=== PATIENT | female | born 1955 | race Caucasian/White ===

== ENCOUNTER 2025-06-07 14:28 | Inpatient (IN) | payer OTHER, SELFPAY ==
[2025-06-07] VITALS (17 sets, daily range): BP systolic 126–157; BP diastolic 60–89; PULSE 70–94; RESP 16–24; TEMP 36.5–40.4; O2SAT 92–99; BMI 32.5
--- NOTE | 2025-06-07 15:00 | PC.NURSE ---
educational sign language interpreter used, yi
--- NOTE | 2025-06-07 15:45 | DI.US.S_ITS ---
PROCEDURE: US PERIPH VENOUS LOW EXTREM RT INDICATIONS: Leg swelling, ecchymosis TECHNIQUE: Real-time imaging, as well as color and pulse Doppler interrogation, were performed of the lower extremity deep veins from the inguinal ligament to the popliteal fossa, with documentation of the visualized calf veins. COMPARISON: None. FINDINGS: The common femoral, femoral, popliteal, and the visualized calf veins are normally compressible, and free of intraluminal thrombus. Color and pulse Doppler demonstrate normal phasic intraluminal flow. There is normal augmentation response to distal compression maneuver. Peroneal vein is not seen secondary to edema. IMPRESSION: No findings of lower extremity deep venous thrombosis. Dictated by: Luis Rico M.D. on 06/07/2025 at 16:37 Approved by: Luis Rico M.D. on 06/07/2025 at 16:38
[2025-06-07 16:55] LABS: Add Manual Diff / Slide Review NO; Hematocrit 41.4 % (36-46); Hemoglobin 13.6 g/dL (12.0-16.0); Lymphocytes Absolute Auto 1200 /uL (1100-4500); Mean Corpuscular HGB Conc 32.8 % (30-36); Mean Corpuscular Hemoglobin 29.9 PG (26-34); Mean Corpuscular Volume 91.2 fL (80-100); Platelet Count 163 X10^3/uL (150-400)
[2025-06-07 17:05] LABS: INR 1.2 (0.9-1.3); Prothrombin Time 13.9 SECONDS (9.4-12.5)
[2025-06-07 17:07] LABS: PTT Partial Thromboplastin Tim 29 SECONDS (25.1-36.5)
--- NOTE | 2025-06-07 17:13 | DI.RAD.S_ITS ---
PROCEDURE: XR CHEST 2V INDICATIONS: sepsis TECHNIQUE: 2 views of the chest were acquired. COMPARISON: None. FINDINGS: Surgical changes and devices: None. Lungs and pleura: Lungs are clear. No pleural effusions or pneumothorax. Mediastinum: Mediastinal contours are normal. Heart size is normal. Bones and chest wall: No suspicious bony abnormalities. Soft tissues appear unremarkable. IMPRESSION: No acute cardiopulmonary abnormality is seen. Dictated by: Joe Abdi M.D. on 06/07/2025 at 19:01 Approved by: Joe Abdi M.D. on 06/07/2025 at 19:01
--- NOTE | 2025-06-07 17:13 | EKG_ITS ---
[address] [address] Test Date: 2025-06-07 Pat Name: Malathi Lynch Department: Room: Gender: Female Rough Rounder: BRITTANI : 1955 Requested By: Order Number: [id number] Reading MD: Ish Raymond MD Measurements Intervals Vandiver Rate: 84 P: 72 DC: 162 QRS: 62 QRSD: 98 T: 56 QT: 384 QTc: 453 Interpretive Statements Normal sinus rhythm Electronically Signed On 06-08-2025 7:39:06 PDT by Ish Raymond MD
[2025-06-07 17:17] LABS: Alanine Aminotransferase 28 IU/L (<35); Albumin 4.7 g/dL (3.5-5.0); Albumin Globulin Ratio 1.3 (1.0-2.8); Alkaline Phosphatase 77 U/L (38-126); Blood Urea Nitrogen 15 mg/dL (7-17); Calcium 10.4 mg/dL (8.4-10.2); Carbon Dioxide 29 mmol/L (22-32); Chloride 98 mmol/L (98-107); Estimated Glomerular Filt Rate > 60 mL/min (>60); Globulin 3.5 g/dL (1.7-4.1); Glucose 129 mg/dL (70-99); HEMOLYSIS < 15 (0-50); Potassium 3.9 mmol/L (3.4-5.1); Sodium 134 mmol/L (137-145); Total Protein 8.2 g/dL (6.3-8.2)
[2025-06-07 17:27] LABS: Creatine Kinase 120 U/L (30-135); Lactate (Lactic Acid) 1.7 mmol/L (0.7-2.1)
[2025-06-07 17:40] LABS: Troponin I < 0.012 ng/mL (0.01-0.034)
[2025-06-07 17:45] LABS: Procalcitonin 1.11 ng/mL (<0.5)
[2025-06-07] MEDS: IBUPROFEN 400 MG TABLET 800 MG PO (17:54)
--- NOTE | 2025-06-07 17:55 | ED_ITS ---
HPI - Extremity Problem <Maria Isabel Guevara PA-C - Last Filed: 06/07/25 19:04> General Chief complaint: Extremity Problem,Nontraumatic Stated complaint: Needs lab work for Antibiotics sent from Time Seen by Provider: 06/07/25 14:35 Source: patient Mode of arrival: Ambulatory History of Present Illness HPI Narrative: 69-year-old Nigerian speaking female with past medical history hypertension presents to the ED with 2 days of right lower leg erythema, swelling. Use the electrophysiologist for communication with patient and patient's . Patient states that she had an infection in the right lower delcid for which she took p.o. Augmentin which cleared up the infection. Yesterday, patient noted a small red patch in that same spot on the delcid. This morning, patient noted that she saw a large area of ecchymosis from the delcid on down to the ankle. Patient also reports more swelling. Denies numbness, tingling, weakness. Patient endorses subjective fevers for the last 2 days. Denies headache, rhinorrhea, cough, sore throat, chest pain, shortness of breath, abdominal pain. Patient endorses nausea, denies vomiting. Review of Systems <Maria Isabel Guevara PA-C - Last Filed: 06/07/25 19:04> Constitutional Constitutional: Denies chills, Denies fatigue, Reports fever(s), Denies frequent falls, Denies lethargy and Denies weakness Eyes Eyes: Denies change in vision, Denies eye discharge, Denies irritation and Denies loss of vision ENT Ears, Nose, Mouth, and Throat: Denies change in voice, Denies dizziness, Denies neck pain, Denies sore throat and Denies throat swelling Cardiovascular Cardiovascular: Denies chest pain, Denies irregular heart rhythm, Denies lightheadedness, Denies palpitations, Denies dyspnea, Denies dyspnea on exertion and Denies orthopnea Respiratory Respiratory: Denies cough, Denies dyspnea, Denies dyspnea on exertion and Denies wheezing Gastrointestinal Gastrointestinal: Denies abdominal pain, Denies change in bowel habits, Denies diarrhea, Reports nausea and Denies vomiting Musculoskeletal Musculoskeletal: Denies neck pain and Denies numbness Integumentary/Breasts Skin/Breast: Denies pruritus, Denies erythema, Denies rash, Reports unusual bruising and Denies wounds Comments: Redness and swelling in the right lower leg Neurologic Neurologic: Denies behavioral changes, Denies confusion, Denies dizziness, Denies frequent falls, Denies loss of vision, Denies numbness and Denies weakness Psychiatric Psychiatric: Denies anxiety, Denies behavioral changes, Denies confusion, Denies depression, Denies homicidal ideation and Denies suicidal ideation Endocrine Endocrine: Denies fatigue, Denies flushing and Denies palpitations Hematologic/Lymphatic Hematologic/Lymphatic: Denies easy bruising Allergic/Immunologic Allergic/Immunologic: Denies urticaria, Denies throat swelling and Denies wheezing Patient History <Maria Isabel Guevara PA-C - Last Filed: 06/07/25 19:04> Social History Smoking Status: Never smoker Smoking Status: Never smoker Exam <Maria Isabel Guevara PA-C - Last Filed: 06/07/25 19:04> Narrative Exam Narrative: Const General:?cooperative, healthy appearing and comfortable HENMT Head:?normal to inspection Ears:?hearing grossly normal bilaterally Nose:?external nose normal Face and sinus:?normal facial exam and sinuses nontender Mouth:?oral mucosae normal Throat:?posterior oropharynx normal Eyes General:?appearance normal, both eyes and all related structures Neck Neck:?normal visual inspection and no lymphadenopathy noted Resp Effort & Inspection:?normal respiratory effort Auscultation:?clear to auscultation bilaterally Cardio Rate:?regular rate Rhythm:?regular rhythm Integumentary/musculoskeletal There is a large area of ecchymosis extending from right lower delcid down into the ankle. Swelling of the right lower leg. Strength and sensation is intact. Patient able to bear weight and walk. Patient is neurovascularly intact. Neuro General:?patient alert, patient awake and patient oriented x3 Initial Vital Signs Initial Vital Signs: Vital Signs Temperature 98.0 F 06/07/25 14:37 Pulse Rate 94 H 06/07/25 14:37 Respiratory Rate 16 06/07/25 14:37 Blood Pressure 126/60 06/07/25 14:37 Pulse Oximetry 97 06/07/25 14:37 Oxygen Delivery Method Room Air 06/07/25 14:37 <Benson Heller DO - Last Filed: 06/07/25 21:19> Initial Vital Signs Initial Vital Signs: Vital Signs Temperature 98.0 F 06/07/25 14:37 Pulse Rate 94 H 06/07/25 14:37 Respiratory Rate 16 06/07/25 14:37 Blood Pressure 126/60 06/07/25 14:37 Pulse Oximetry 97 06/07/25 14:37 Oxygen Delivery Method Room Air 06/07/25 14:37 Course <Maria Isabel Guevara PA-C - Last Filed: 06/07/25 19:04> Orders Ordered: ED Orders 06/07/25 15:45 US periph venous low extrem rt Stat 06/07/25 16:37 CBC Auto Diff [Complete Blood Count AUTO DIFF] Stat CMP [Comprehensive Metabolic Panel] Stat CRP [C-Reactive Protein Quant] Stat ESR [Erythrocyte Sedimentation Rate] Stat Lactate (Lactic Acid) Stat PT [Prothrombin Time INR] Stat PTT [PTT Partial Thromboplastin Jean-Pierre] Stat Procalcitonin Stat Troponin & CK Cardiac Panel Stat 06/07/25 17:13 XR chest 2V Stat EKG-12 Lead Stat 06/07/25 17:43 Urinalysis and Microscopic Stat Urine Culture Stat 06/07/25 18:20 Blood Culture Stat 06/07/25 18:26 Covid-19 + FLU A/B + RSV - PCR Stat 06/07/25 18:43 CT LE RT w con Stat Discontinued Medications Piperacillin Sod/Tazobactam (Sod 4.5 gm/ Sodium Chloride) 100 mls @ 200 mls/hr IV NOW ONE Stop: 06/07/25 17:14 Last Infusion: 06/07/25 19:12 Dose: Infused Documented By: Admin: 06/07/25 18:30 Dose: 200 mls/hr Documented By: CHARLEY Sodium Chloride (Normal Saline 0.9%) 2,670 mls @ 890 mls/hr 30 ml/kg infuse over 3 hr (2670 ml) IV NOW ONE Stop: 06/07/25 20:12 Last Admin: 06/07/25 18:39 Dose: 890 mls/hr Documented By: CHARLEY Vancomycin HCl 1,750 mg/ (Sodium Chloride) 500 mls @ 250 mls/hr IV NOW ONE Stop: 06/07/25 19:10 Last Admin: 06/07/25 20:06 Dose: Not Given Documented By: FER Vancomycin HCl 2,000 mg/ (Sodium Chloride) 500 mls @ 250 mls/hr IV NOW ONE Stop: 06/07/25 19:45 Last Admin: 06/07/25 20:08 Dose: 250 mls/hr Documented By: FER Ibuprofen (Ibuprofen 400 Mg Tablet) 800 mg PO NOW ONE Stop: 06/07/25 17:51 Last Admin: 06/07/25 17:54 Dose: 800 mg Documented By: CHARLEY Vital Signs Vital signs: Vital Signs - 8 hr 06/07/25 14:37 06/07/25 17:21 06/07/25 17:54 Temperature 98.0 F 104.7 F H 104.7 F H Pulse Rate 94 H 92 H Respiratory Rate 16 20 Blood Pressure 126/60 157/66 H Pulse Oximetry 97 99 Oxygen Delivery Method Room Air Room Air 06/07/25 18:47 06/07/25 19:13 Temperature 100.5 F H 100.8 F H Pulse Rate Respiratory Rate Blood Pressure Pulse Oximetry Oxygen Delivery Method <Benson Heller, - Last Filed: 06/07/25 21:19> Orders Ordered: ED Orders 06/07/25 15:45 US periph venous low extrem rt Stat 06/07/25 16:37 CBC Auto Diff [Complete Blood Count AUTO DIFF] Stat CMP [Comprehensive Metabolic Panel] Stat CRP [C-Reactive Protein Quant] Stat ESR [Erythrocyte Sedimentation Rate] Stat Lactate (Lactic Acid) Stat PT [Prothrombin Time INR] Stat PTT [PTT Partial Thromboplastin Jean-Pierre] Stat Procalcitonin Stat Troponin & CK Cardiac Panel Stat 06/07/25 17:13 XR chest 2V Stat EKG-12 Lead Stat 06/07/25 17:43 Urinalysis and Microscopic Stat Urine Culture Stat 06/07/25 18:20 Blood Culture Stat 06/07/25 18:26 Covid-19 + FLU A/B + RSV - PCR Stat 06/07/25 18:43 CT LE RT w con Stat Discontinued Medications Piperacillin Sod/Tazobactam (Sod 4.5 gm/ Sodium Chloride) 100 mls @ 200 mls/hr IV NOW ONE Stop: 06/07/25 17:14 Last Infusion: 06/07/25 19:12 Dose: Infused Documented By: Admin: 06/07/25 18:30 Dose: 200 mls/hr Documented By: CHARLEY Sodium Chloride (Normal Saline 0.9%) 2,670 mls @ 890 mls/hr 30 ml/kg infuse over 3 hr (2670 ml) IV NOW ONE Stop: 06/07/25 20:12 Last Admin: 06/07/25 18:39 Dose: 890 mls/hr Documented By: CHARLEY Vancomycin HCl 1,750 mg/ (Sodium Chloride) 500 mls @ 250 mls/hr IV NOW ONE Stop: 06/07/25 19:10 Last Admin: 06/07/25 20:06 Dose: Not Given Documented By: FER Vancomycin HCl 2,000 mg/ (Sodium Chloride) 500 mls @ 250 mls/hr IV NOW ONE Stop: 06/07/25 19:45 Last Admin: 06/07/25 20:08 Dose: 250 mls/hr Documented By: FER Ibuprofen (Ibuprofen 400 Mg Tablet) 800 mg PO NOW ONE Stop: 06/07/25 17:51 Last Admin: 06/07/25 17:54 Dose: 800 mg Documented By: CHARLEY Vital Signs Vital signs: Vital Signs - 8 hr 06/07/25 14:37 06/07/25 17:21 06/07/25 17:54 Temperature 98.0 F 104.7 F H 104.7 F H Pulse Rate 94 H 92 H Respiratory Rate 16 20 Blood Pressure 126/60 157/66 H Pulse Oximetry 97 99 Oxygen Delivery Method Room Air Room Air 06/07/25 18:47 06/07/25 19:13 Temperature 100.5 F H 100.8 F H Pulse Rate Respiratory Rate Blood Pressure Pulse Oximetry Oxygen Delivery Method MDM - Extremity (Nontraumatic) <Maria Isabel Guevara PA-C - Last Filed: 06/07/25 19:04> Lab Data 06/07/25 16:37 06/07/25 16:37 Labs: Lab Results 06/07/25 06/07/25 06/07/25 Range/Units 16:37 17:43 18:26 WBC 15.1 H (4.5-11.0) X10^3/uL RBC 4.54 (4.0-5.2) X10^6/uL Hgb 13.6 (12.0-16.0) g/dL Hct 41.4 (36-46) % MCV 91.2 (80-100) fL MCH 29.9 (26-34) PG MCHC 32.8 (30-36) % RDW 13.9 (11.6-14.8) % Plt Count 163 (150-400) X10^3/uL Neut % (Auto) 86.0 H (50-75) % Lymph % (Auto) 7.8 L (25-40) % [place] % (Auto) 6.0 (3-14) % Eos % (Auto) 0.0 L (2-4) % Baso % (Auto) 0.2 (0-2) % Neut # (Auto) 54668 H (9328-3742) /uL Lymph # (Auto) 1200 (8406-2217) /uL [place] # (Auto) 900 (0-900) /uL Eos # (Auto) 0 (0-450) /uL Baso # (Auto) 0 (0-100) /uL ESR 19 (0-20) MM/HR PT 13.9 H (9.4-12.5) SECONDS INR 1.2 (0.9-1.3) APTT 29 (25.1-36.5) SECONDS Sodium 134 L (137-145) mmol/L Potassium 3.9 (3.4-5.1) mmol/L Chloride 98 (98-107) mmol/L Carbon Dioxide 29 (22-32) mmol/L BUN 15 (7-17) mg/dL Creatinine 0.74 (0.52-1.04) mg/dL Estimated GFR > 60 (>60) mL/min BUN/Creatinine Ratio 20.3 (6-22) Glucose 129 H (70-99) mg/dL Lactate 1.7 (0.7-2.1) mmol/L Calcium 10.4 H (8.4-10.2) mg/dL Total Bilirubin 0.7 (0.2-1.3) mg/dL AST 32 (14-36) IU/L ALT 28 (<35) IU/L Alkaline Phosphatase 77 (38-126) U/L Total Creatine Kinase 120 (30-135) U/L Troponin I < 0.012 (0.01-0.034) ng/mL C-Reactive Protein 16.4 H (<1.0) mg/dL Total Protein 8.2 (6.3-8.2) g/dL Albumin 4.7 (3.5-5.0) g/dL Globulin 3.5 (1.7-4.1) g/dL Albumin/Globulin Ratio 1.3 (1.0-2.8) Procalcitonin 1.11 H (<0.5) ng/mL Urine Color Yellow Urine Appearance Slightly cloudy Urine pH 8.0 (4.5-8.0) Ur Specific [place] 1.010 (1.000-1.035) Urine Protein 1+ H (Negative) Urine Glucose (UA) Negative (Negative) g/dL Urine Ketones 1+ H (NEGATIVE) Urine Occult Blood Trace-intact (Negative) Urine Nitrate Negative (Negative) Urine Bilirubin Negative (NEGATIVE) Urine Urobilinogen 2.0 H (0.2) E.U./dL Ur Leukocyte Esterase 3+ H (NEGATIVE) Urine RBC 1-5/hpf (0-5/HPF) Urine WBC 30-100/hpf H (0-5/HPF) Ur Squamous Epith Cells 1-5 /hpf (0-5/HPF) Amorphous Sediment 2+ Urine Bacteria Many (>30) H (None) Ur Culture Indicated? Specimen cultured Micro UA Comment Vol Urine Centrifuged 10ml (spun) SARS-CoV-2 (PCR) Negative (Negative) Influenza A (RT-PCR) Flu a negative (NEGATIVE) Influenza B (RT-PCR) Flu b negative (NEGATIVE) RSV (PCR) Negative (Negative) MDM Narrative Medical decision making narrative: 69-year-old Nigerian speaking female with past medical history hypertension presents to the ED with 2 days of right lower leg erythema, swelling. Concern for cellulitis versus abscess versus DVT versus sepsis versus other. Will obtain labs, UA, ultrasound. Ultrasound without findings of lower extremity DVT. WBC elevated to 15.1. Procalcitonin elevated to 1.11. C-reactive protein elevated to 16.4. Patient is tachycardic in the low to mid 90s. On presentation, temperature was 98 F. On reexamination, elevated temperature of 104.7?. Patient triggered sepsis. IV fluids, antibiotics, Motrin initiated. UA is positive for UTI. Urine is positive for ketones, leukocyte esterase, urobilinogen, WBC. CT LE ordered to rule out necrotizing infection vs other. Used electrophysiologist to explain findings and need for treatment and hospitalization for sepsis. Patient and patient's were extremely concerned about insurance covering all of this care. Patient and patient's are from [facility], currently visiting their daughter who recently had a baby. They are slated to leave back to friends in 3 days. Explained to them that sepsis can be life-threatening very quickly. They verbalized understanding and are agreeable the plan. Patient is signed out to Dr. Benson Heller. Medical records reviewed: Yes <Benson Heller, DO - Last Filed: 06/07/25 21:19> Lab Data Labs: Lab Results 06/07/25 06/07/25 06/07/25 Range/Units 16:37 17:43 18:26 WBC 15.1 H (4.5-11.0) X10^3/uL RBC 4.54 (4.0-5.2) X10^6/uL Hgb 13.6 (12.0-16.0) g/dL Hct 41.4 (36-46) % MCV 91.2 (80-100) fL MCH 29.9 (26-34) PG MCHC 32.8 (30-36) % RDW 13.9 (11.6-14.8) % Plt Count 163 (150-400) X10^3/uL Neut % (Auto) 86.0 H (50-75) % Lymph % (Auto) 7.8 L (25-40) % [place] % (Auto) 6.0 (3-14) % Eos % (Auto) 0.0 L (2-4) % Baso % (Auto) 0.2 (0-2) % Neut # (Auto) 78003 H (2799-1060) /uL Lymph # (Auto) 1200 (0448-4502) /uL [place] # (Auto) 900 (0-900) /uL Eos # (Auto) 0 (0-450) /uL Baso # (Auto) 0 (0-100) /uL ESR 19 (0-20) MM/HR PT 13.9 H (9.4-12.5) SECONDS INR 1.2 (0.9-1.3) APTT 29 (25.1-36.5) SECONDS Sodium 134 L (137-145) mmol/L Potassium 3.9 (3.4-5.1) mmol/L Chloride 98 (98-107) mmol/L Carbon Dioxide 29 (22-32) mmol/L BUN 15 (7-17) mg/dL Creatinine 0.74 (0.52-1.04) mg/dL Estimated GFR > 60 (>60) mL/min BUN/Creatinine Ratio 20.3 (6-22) Glucose 129 H (70-99) mg/dL Lactate 1.7 (0.7-2.1) mmol/L Calcium 10.4 H (8.4-10.2) mg/dL Total Bilirubin 0.7 (0.2-1.3) mg/dL AST 32 (14-36) IU/L ALT 28 (<35) IU/L Alkaline Phosphatase 77 (38-126) U/L Total Creatine Kinase 120 (30-135) U/L Troponin I < 0.012 (0.01-0.034) ng/mL C-Reactive Protein 16.4 H (<1.0) mg/dL Total Protein 8.2 (6.3-8.2) g/dL Albumin 4.7 (3.5-5.0) g/dL Globulin 3.5 (1.7-4.1) g/dL Albumin/Globulin Ratio 1.3 (1.0-2.8) Procalcitonin 1.11 H (<0.5) ng/mL Urine Color Yellow Urine Appearance Slightly cloudy Urine pH 8.0 (4.5-8.0) Ur Specific [place] 1.010 (1.000-1.035) Urine Protein 1+ H (Negative) Urine Glucose (UA) Negative (Negative) g/dL Urine Ketones 1+ H (NEGATIVE) Urine Occult Blood Trace-intact (Negative) Urine Nitrate Negative (Negative) Urine Bilirubin Negative (NEGATIVE) Urine Urobilinogen 2.0 H (0.2) E.U./dL Ur Leukocyte Esterase 3+ H (NEGATIVE) Urine RBC 1-5/hpf (0-5/HPF) Urine WBC 30-100/hpf H (0-5/HPF) Ur Squamous Epith Cells 1-5 /hpf (0-5/HPF) Amorphous Sediment 2+ Urine Bacteria Many (>30) H (None) Ur Culture Indicated? Specimen cultured Micro UA Comment Vol Urine Centrifuged 10ml (spun) SARS-CoV-2 (PCR) Negative (Negative) Influenza A (RT-PCR) Flu a negative (NEGATIVE) Influenza B (RT-PCR) Flu b negative (NEGATIVE) RSV (PCR) Negative (Negative) Imaging Data CT lower extremity: Radiologist's Impression: [address] [address] [address] Scan Report Signed Patient: Malathi Lynch I MR#: [id number] : 1955 Acct:[id number] Age/Sex: 69 / F Date of Service: 06/07/25 Loc: ED Accession Number: [id number] Procedure: CT LE RT w con Ordering Provider: Maria Isabel Guevara PA-C PROCEDURE: CT LE RT W CON INDICATIONS: sepsis; Ecchymosis TECHNIQUE: After the administration of intravenous contrast, 3 mm axial sections acquired of the left lower extremity , with coronal and sagittal reformats. COMPARISON: None. FINDINGS: Image quality: Excellent. Bones: No acute fracture or dislocation. No osteomyelitis. Soft tissues: Diffuse superficial edema is presumed to represent cellulitis. No soft tissue gas. No myositis. No abscess. IMPRESSION: No evidence of osteomyelitis. No evidence of necrotizing fasciitis. MDM Narrative Medical decision making narrative: 69-year-old Nigerian speaking female with past medical history hypertension presents to the ED with 2 days of right lower leg erythema, swelling. Concern for cellulitis versus abscess versus DVT versus sepsis versus other. Will obtain labs, UA, ultrasound. Ultrasound without findings of lower extremity DVT. WBC elevated to 15.1. Procalcitonin elevated to 1.11. C-reactive protein elevated to 16.4. Patient is tachycardic in the low to mid 90s. On presentation, temperature was 98 F. On reexamination, elevated temperature of 104.7?. Patient triggered sepsis. IV fluids, antibiotics, Motrin initiated. UA is positive for UTI. Urine is positive for ketones, leukocyte esterase, urobilinogen, WBC. CT LE ordered to rule out necrotizing infection vs other. Used electrophysiologist to explain findings and need for treatment and hospitalization for sepsis. Patient and patient's were extremely concerned about insurance covering all of this care. Patient and patient's are from [place], currently visiting their daughter who recently had a baby. They are slated to leave back to friends in 3 days. Explained to them that sepsis can be life-threatening very quickly. They verbalized understanding and are agreeable the plan. Patient is signed out to Dr. Benson Heller. Medical records reviewed: Yes 1899: Patient was signed out to me by PRANAY Nicolas, patient is a Nigerian speaking female with a past medical history of hypertension presenting for 2 days of right lower extremity erythema swelling, patient had negative ultrasound of the leg, however is meeting SIRS criteria with an elevated white count, elevated CRP, as well as tachycardia and fever. Workup so far has revealed a UTI, Patient has already received fluid bolus, antibiotics (vanc + zosyn), final disposition pending most likely admission and CT of the lower extremity. 1954: CT lower extremity no signs of osteomyelitis or necrotizing fasciitis, does show diffuse superficial edema most likely cellulitis. Patient has already received vanc Zosyn, given patient meeting sepsis criteria patient will be required to be admitted to the hospital for further treatment The patient's management plan was discussed Dr. Holder, who agrees to admit the patient to their service and assumes care of this patient at this time. Full admission orders will be placed by the primary team. Critical Care Time <Benson Heller DO - Last Filed: 06/07/25 21:19> Critical Care Time Critical Care Time: Yes Total Critical Care Time: 35 Attestation: Authorized and Performed by: Benson Heller DO Total critical care time: Approximately [35] minutes Due to a high probability of clinically significant, life threatening deterioration, the patient required my highest level of preparedness to intervene emergently and I personally spent this critical care time directly and personally managing the patient. This critical care time included obtaining a history; examining the patient; pulse oximetry; ordering and review of studies; arranging urgent treatment with development of a management plan; evaluation of patient's response to treatment; frequent reassessment; and, discussions with other providers. This critical care time was performed to assess and manage the high probability of imminent, life-threatening deterioration that could result in multi-organ failure. It was exclusive of separately billable procedures and treating other patients and teaching time. Please see MDM section and the rest of the note for further information on patient assessment and treatment. Discharge Plan Departure Patient Disposition: Admitted As Inpatient Clinical Impression: Acute UTI, Cellulitis of leg, right
[2025-06-07 18:02] LABS: Bilirubin Urine UA NEGATIVE (NEGATIVE); Color Urine UA YELLOW; Glucose Urine UA NEGATIVE (Negative); Ketones Urine UA 1+ (NEGATIVE); Leukocyte Esterase Urine UA 3+ (NEGATIVE); Nitrite Urine UA NEGATIVE (Negative); Occult Blood Urine UA TRACE-INTACT (Negative); Protein Urine UA 1+ (Negative); Specific Gravity Urine UA 1.010 (1.000-1.035); Urobilinogen Urine UA 2.0 E.U./dL (0.2)
[2025-06-07 18:04] LABS: pH Urine UA 8.0 (4.5-8.0)
[2025-06-07 18:05] LABS: Appearance Urine UA Slightly Cloudy
[2025-06-07 18:09] LABS: Culture Indicated Urine Specimen Cultured
[2025-06-07] MEDS: PIPERACILLIN/TAZO 4.5 GM in SODIUM CHLORIDE 0.9% 100 ML IV (18:30)
[2025-06-07] MEDS: SODIUM CHLORIDE 0.9% 890 ML IV (18:39)
--- NOTE | 2025-06-07 18:43 | DI.CT.S_ITS ---
PROCEDURE: CT LE RT W CON INDICATIONS: sepsis; Ecchymosis TECHNIQUE: After the administration of intravenous contrast, 3 mm axial sections acquired of the left lower extremity , with coronal and sagittal reformats. COMPARISON: None. FINDINGS: Image quality: Excellent. Bones: No acute fracture or dislocation. No osteomyelitis. Soft tissues: Diffuse superficial edema is presumed to represent cellulitis. No soft tissue gas. No myositis. No abscess. IMPRESSION: No evidence of osteomyelitis. No evidence of necrotizing fasciitis. Dictated by: Joe Abdi M.D. on 06/07/2025 at 19:45 Approved by: Joe Abdi M.D. on 06/07/2025 at 19:49
[2025-06-07 19:22] LABS: Influenza A - CEPHEID Flu A NEGATIVE (NEGATIVE); Influenza B - CEPHEID Flu B NEGATIVE (NEGATIVE)
[2025-06-07 19:24] LABS: COVID-19 CEPHEID 4-PLEX PCR Negative (Negative)
[2025-06-07] MEDS: VANCOMYCIN 2,000 MG in SODIUM CHLORIDE 0.9% 500 ML 250 MG IV (20:08)
--- NOTE | 2025-06-07 21:28 | P.HP_ITS ---
History of Present Illness History of Present Illness Date Patient Seen: 06/07/25 Time Patient Seen: 21:28 Chief complaint: Needs lab work for Antibiotics sent from DR Peck: 69-year-old female with past medical history of hypertension presents with right lower leg erythema and swelling. Per the patient's report, patient recently was diagnosed with cellulitis of her right lower extremity in which she completed a course of Augmentin as outpatient. However 2 days ago, the patient noticed that there was a small red patch in the same spot as previous cellulitis. The patient then states that the erythema and swelling in her right lower extremity has worsens over the last 24 hours. The patient also saw a large area of ecchymosis from her delcid down to her ankle on the right. Otherwise the patient denies any recent fever, chills, nausea, vomiting, diarrhea, chest pain, shortness of breath or recent injury to her right delcid. In our emergency room, the patient was hemodynamically stable though labs shows WBC 15, and normal lactate. UA however was positive for UTI. CT scan of the right lower extremity as well as Doppler of the right lower extremity did not show any deep infection or DVT. Due to meeting SIRS criteria the patient was given broad-spectrum antibiotic of Zosyn and vancomycin to cover for both UTI and cellulitis of the right lower extremity. [facility] Social History Smoking Status: Never smoker Review of Systems Review of Systems ROS: Yes All systems reviewed with the patient and are negative except as otherwise documented Exam Vital Signs (past 8 hours): - 06/07/25 14:37 06/07/25 17:21 06/07/25 17:54 Temperature 98.0 F 104.7 F H 104.7 F H Pulse Rate 94 H 92 H Respiratory Rate 16 20 Blood Pressure 126/60 157/66 H Pulse Oximetry 97 99 Oxygen Delivery Method Room Air Room Air 06/07/25 18:47 06/07/25 19:13 Temperature 100.5 F H 100.8 F H Pulse Rate Respiratory Rate Blood Pressure Pulse Oximetry Oxygen Delivery Method Oxygen Delivery Method Room Air Narrative Exam Narrative: Physical Exam: GENERAL: The patient is not in any acute distressed. Awake and alert. HEENT: Nonicteric sclerae, PERRLA, EOMI. Oropharynx clear. Moist mucous membranes. Conjunctivae appear well perfused. HEART: Regular rate and rhythm without murmurs. No lower extremities edema. LUNGS: Clear to auscultation bilaterally. No wheezing, crackles or rhonchi ABDOMEN: Soft, positive bowel sounds, nontender. SKIN: RLES erythema and edema. Some echymosis seen as well. No rash, no excessive bruising, petechiae, or purpura. NEUROLOGIC: AxO x 3. Cranial nerves II-XII intact without motor/sensory deficit. Objective Labs 06/07/25 16:37 06/07/25 16:37 Labs: Laboratory Results - last 24 hr 06/07/25 06/07/25 06/07/25 16:37 17:43 18:26 WBC 15.1 H RBC 4.54 Hgb 13.6 Hct 41.4 MCV 91.2 MCH 29.9 MCHC 32.8 RDW 13.9 Plt Count 163 Neut % (Auto) 86.0 H Lymph % (Auto) 7.8 L [place] % (Auto) 6.0 Eos % (Auto) 0.0 L Baso % (Auto) 0.2 Neut # (Auto) 51777 H Lymph # (Auto) 1200 [place] # (Auto) 900 Eos # (Auto) 0 Baso # (Auto) 0 ESR 19 PT 13.9 H INR 1.2 APTT 29 Sodium 134 L Potassium 3.9 Chloride 98 Carbon Dioxide 29 BUN 15 Creatinine 0.74 Estimated GFR > 60 BUN/Creatinine Ratio 20.3 Glucose 129 H Lactate 1.7 Calcium 10.4 H Total Bilirubin 0.7 AST 32 ALT 28 Alkaline Phosphatase 77 Total Creatine Kinase 120 Troponin I < 0.012 C-Reactive Protein 16.4 H Total Protein 8.2 Albumin 4.7 Globulin 3.5 Albumin/Globulin Ratio 1.3 Procalcitonin 1.11 H Urine Color Yellow Urine Appearance Slightly cloudy Urine pH 8.0 Ur Specific [place] 1.010 Urine Protein 1+ H Urine Glucose (UA) Negative Urine Ketones 1+ H Urine Occult Blood Trace-intact Urine Nitrate Negative Urine Bilirubin Negative Urine Urobilinogen 2.0 H Ur Leukocyte Esterase 3+ H Urine RBC 1-5/hpf Urine WBC 30-100/hpf H Ur Squamous Epith Cells 1-5 /hpf Amorphous Sediment 2+ Urine Bacteria Many (>30) H Ur Culture Indicated? Specimen cultured Micro UA Comment Vol Urine Centrifuged 10ml (spun) SARS-CoV-2 (PCR) Negative Influenza A (RT-PCR) Flu a negative Influenza B (RT-PCR) Flu b negative RSV (PCR) Negative Assessment & Plan Assessment & Plan narrative: Sepsis. Admit the patient to medical telemetry as inpatient. Likely source is UTI and cellulitis of right lower extremity. Continue IV fluid and treat underlying infection. Monitor hemodynamics. Right lower extremity cellulitis. Continue broad-spectrum antibiotic Zosyn and vancomycin. Follow-up cultures and de-escalate antibiotic accordingly. Of note the patient's CT scan and venous Doppler does not show deep infection or signs of DVT. Hypertension. Monitor blood pressure and resume home medication accordingly. DVT prophylaxis heparin subcu. CODE STATUS full code. Disposition likely home in 2 to 3 days - As the provider of this telehealth evaluation, requested by the patient's evaluating physician, I attest that I introduced myself to the patient, provided my credentials and determined that telemedicine via a real-time, 2 way interactive audio and video platform is an appropriate and effective means of providing this service. - I reviewed the patient's chart and had a discussion with the member of the patient's treatment team. - The patient and I mutually agreed with continuation of this evaluation via telemedicine. The patient consented for the telemedicine evaluation. - This virtual encounter was taken place from [place] by Dr. Nicolas Holder. The patient was evaluated at [facility]. The encounter was approximately 35 minutes. The nurse was present during the entire time of the encounter and was able to move the stethoscope in appropriate directions. Time-Based Coding :: [TOTAL MINUTES] spent with patient and on the chart (including review of chart, obtaining history, exam, reviewing outside data, placing orders, documenting exam and treatment plan, and counseling patient) on [DATE].
[2025-06-07] MEDS: SODIUM CHLORIDE 0.9% 1,000 ML 100 ML IV (22:30)
[2025-06-07] MEDS: PIPERACILLIN/TAZO 3.375 GM in SODIUM CHLORIDE 0.9% 100 ML IV (23:10)
[2025-06-08 05:34] LABS: Add Manual Diff / Slide Review NO; Hematocrit 35.3 % (36-46); Hemoglobin 12.0 g/dL (12.0-16.0); Lymphocytes Absolute Auto 1300 /uL (1100-4500); Mean Corpuscular HGB Conc 34.1 % (30-36); Mean Corpuscular Hemoglobin 31.1 PG (26-34); Mean Corpuscular Volume 91.1 fL (80-100); Platelet Count 133 X10^3/uL (150-400)
[2025-06-08 05:52] LABS: Blood Urea Nitrogen 11 mg/dL (7-17); Calcium 9.2 mg/dL (8.4-10.2); Carbon Dioxide 26 mmol/L (22-32); Chloride 109 mmol/L (98-107); Estimated Glomerular Filt Rate > 60 mL/min (>60); Glucose 113 mg/dL (70-99); HEMOLYSIS < 15 (0-50); Potassium 3.4 mmol/L (3.4-5.1); Sodium 140 mmol/L (137-145)
[2025-06-08] MEDS: PIPERACILLIN/TAZO 3.375 GM in SODIUM CHLORIDE 0.9% 100 ML IV (06:08)
--- NOTE | 2025-06-08 09:39 | P.DS_ITS ---
History of Present Illness History of Present Illness Chief complaint: Needs lab work for Antibiotics sent from Narrative: From H&P: 69-year-old female with past medical history of hypertension presents with right lower leg erythema and swelling. Per the patient's report, patient recently was diagnosed with cellulitis of her right lower extremity in which she completed a course of Augmentin as outpatient. However 2 days ago, the patient noticed that there was a small red patch in the same spot as previous cellulitis. The patient then states that the erythema and swelling in her right lower extremity has worsens over the last 24 hours. The patient also saw a large area of ecchymosis from her delcid down to her ankle on the right. Otherwise the patient denies any recent fever, chills, nausea, vomiting, diarrhea, chest pain, shortness of breath or recent injury to her right delcid. In our emergency room, the patient was hemodynamically stable though labs shows WBC 15, and normal lactate. UA however was positive for UTI. CT scan of the right lower extremity as well as Doppler of the right lower extremity did not show any deep infection or DVT. Due to meeting SIRS criteria the patient was given broad-spectrum antibiotic of Zosyn and vancomycin to cover for both UTI and cellulitis of the right lower extremity. Discharge Providers Provider Date of admission: 06/07/25 21:19 Discharge Date: 06/08/25 Discharge provider: Jerardo Oleary MD Summary Hospital Course Discharge Diagnosis: 1. Sepsis. Present on admission and resolved. WBC 15.1, T 104.7?, pulse 92, respiration 20. 2. Right lower extremity cellulitis. Present on admission and improved. 3. Hypertension. Chronic and stable. Hospital Course: She was admitted with a right lower extremity cellulitis and a fever which she was had before. She improved overnight and had an unexpectedly rapid recovery allowing her to be discharged on June 08. She was comfortable returning home with leg elevation and antibiotics. She returns to [facility] on Friday. She will monitor for fevers, increased redness, or pain. Status at Discharge Cognitive/behavioral status at discharge: oriented Functional status at discharge: independent ambulation Overall status at discharge: patient is back to baseline Time Spent with Patient Time spent: Greater than 30 minutes Exam Vital Signs (past 8 hours): Oxygen Delivery Method Room Air Oxygen Flow Rate 0 Narrative Exam Narrative: NAD, alert and oriented. Fluent speech. Lungs are clear, normal rate and effort. Heart is regular, no murmur gallop or rub. Abdomen is soft, non distended. Extremities: Right leg has a much smaller area of redness which is not tender, there was no induration or fluctuance. The joint is unremarkable (Ankle). Objective Imaging Multiple studies:: Radiologist's impression: Leg CT: IMPRESSION: No evidence of osteomyelitis. No evidence of necrotizing fasciitis. Chest x-ray: No acute cardiopulmonary abnormality is seen. Leg ultrasound: No findings of lower extremity deep venous thrombosis. Labs 06/08/25 04:10 06/08/25 04:10 Labs: Laboratory Results - last 24 hr 06/07/25 06/07/25 06/07/25 16:37 17:43 18:26 WBC 15.1 H RBC 4.54 Hgb 13.6 Hct 41.4 MCV 91.2 MCH 29.9 MCHC 32.8 RDW 13.9 Plt Count 163 Neut % (Auto) 86.0 H Lymph % (Auto) 7.8 L [place] % (Auto) 6.0 Eos % (Auto) 0.0 L Baso % (Auto) 0.2 Neut # (Auto) 54647 H Lymph # (Auto) 1200 [place] # (Auto) 900 Eos # (Auto) 0 Baso # (Auto) 0 ESR 19 PT 13.9 H INR 1.2 APTT 29 Sodium 134 L Potassium 3.9 Chloride 98 Carbon Dioxide 29 BUN 15 Creatinine 0.74 Estimated GFR > 60 BUN/Creatinine Ratio 20.3 Glucose 129 H Lactate 1.7 Calcium 10.4 H Total Bilirubin 0.7 AST 32 ALT 28 Alkaline Phosphatase 77 Total Creatine Kinase 120 Troponin I < 0.012 C-Reactive Protein 16.4 H Total Protein 8.2 Albumin 4.7 Globulin 3.5 Albumin/Globulin Ratio 1.3 Procalcitonin 1.11 H Urine Color Yellow Urine Appearance Slightly cloudy Urine pH 8.0 Ur Specific [place] 1.010 Urine Protein 1+ H Urine Glucose (UA) Negative Urine Ketones 1+ H Urine Occult Blood Trace-intact Urine Nitrate Negative Urine Bilirubin Negative Urine Urobilinogen 2.0 H Ur Leukocyte Esterase 3+ H Urine RBC 1-5/hpf Urine WBC 30-100/hpf H Ur Squamous Epith Cells 1-5 /hpf Amorphous Sediment 2+ Urine Bacteria Many (>30) H Ur Culture Indicated? Specimen cultured Micro UA Comment Vol Urine Centrifuged 10ml (spun) SARS-CoV-2 (PCR) Negative Influenza A (RT-PCR) Flu a negative Influenza B (RT-PCR) Flu b negative RSV (PCR) Negative 06/08/25 04:10 WBC 10.9 RBC 3.88 L Hgb 12.0 Hct 35.3 L MCV 91.1 MCH 31.1 MCHC 34.1 RDW 13.8 Plt Count 133 L Neut % (Auto) 80.8 H Lymph % (Auto) 11.9 L [place] % (Auto) 6.9 Eos % (Auto) 0.1 L Baso % (Auto) 0.3 Neut # (Auto) 8800 H Lymph # (Auto) 1300 [place] # (Auto) 700 Eos # (Auto) 0 Baso # (Auto) 0 ESR PT INR APTT Sodium 140 Potassium 3.4 Chloride 109 H Carbon Dioxide 26 BUN 11 Creatinine 0.58 Estimated GFR > 60 BUN/Creatinine Ratio 19.0 Glucose 113 H Lactate Calcium 9.2 Total Bilirubin AST ALT Alkaline Phosphatase Total Creatine Kinase Troponin I C-Reactive Protein Total Protein Albumin Globulin Albumin/Globulin Ratio Procalcitonin Urine Color Urine Appearance Urine pH Ur Specific [place] Urine Protein Urine Glucose (UA) Urine Ketones Urine Occult Blood Urine Nitrate Urine Bilirubin Urine Urobilinogen Ur Leukocyte Esterase Urine RBC Urine WBC Ur Squamous Epith Cells Amorphous Sediment Urine Bacteria Ur Culture Indicated? Micro UA Comment Vol Urine Centrifuged SARS-CoV-2 (PCR) Influenza A (RT-PCR) Influenza B (RT-PCR) RSV (PCR) [facility] Social History household members: spouse Smoking Status: Never smoker Discharge Assessment & Plan Assessment and Plan Assessment: 1. Sepsis. Present on admission and resolved. WBC 15.1, T 104.7?, pulse 92, respiration 20. 2. Right lower extremity cellulitis. Present on admission and improved. Plan of Treatment: Discharge home on cephalexin q.i.d. for 5 additional days. Elevate leg and follow up for increased redness, fevers, or pain. Discharge Plan Discharge Plan Patient Disposition: Home Provider Discharge Comment: Stable for discharge home. Discharge orders & Medications Prescriptions: New cephalexin 500 mg capsule 500 mg PO QID Qty: 28 0RF Continued verapamil 240 mg capsule,ext rel. pellets 24 hr 240 mg PO QAM Medication counseling provided by Pharmacist: Yes Discharge Health Status Multidrug resistant organism: No MDRO Diet/Activity/Treatments Diet: Regular Activity: Elevate leg as much as possible. Skin/Wound/Dressing Care Report to your healthcare provider any signs of infection, such as:: chills, fever, increased pain, unusual drainage and unusual redness Visit Report/Discharge Packet Instructions: DI for Cellulitis -- Adult, DI for Urinary Tract Infection (UTI), How to Prevent Falls, High-Potassium Diet Stand Alone Forms: Patient Portal/API, Stroke Signs & Symptoms
[2025-06-08 09:50] VITALS: BP 152/77; PULSE 85; RESP 20; O2SAT 96
--- NOTE | 2025-06-08 10:28 | CM.DANOTE ---
Addendum entered by GERARD Dolan 06/08/25 10:36: ADD: Patient is German speaking only. Original Note: Initial DCP Assessment Note Pt is a 69 yo female, visiting [facility] w/sp from [facility], admitted for management of Right lower extremity cellulitis, IV abx. Patient discharged this morning with Rx for cephalexin. PCP: Patient is visiting from [facility] Payer: No coverage listed Reviewed chart, pt discussed in multidisciplinary rounds this morning. Patient lives independently with family. Currently on vacation. No barriers identified at this time to patient's safe discharge home w/family to assist; close outpatient f/u recommended. Social work team will plan to follow clinical course closely in case any DC needs or concerns arise. GERARD Watson Discharge Planning/Care Management CM Discharge Assessment Start: 06/07/25 22:35 Freq: Status: Active Protocol: Document 06/08/25 10:22 ELIAS (Rec: 06/08/25 10:27 ELIAS [id number]) Discharge Planning Assessment Assigned Discharge GERARD Zheng Lawn And Garden Technician DPOA/Assigned Abner Lynch spouse Designee Name Contact Information [place] [phone] Advance Directives? No Prior Living House Arrangements Household Members spouse Independent with ADL Yes 's Is patient alert and Yes oriented?
[2025-06-08] MEDS: POTASSIUM CHLORIDE 20 MEQ TAB 40 MEQ PO (11:56)
[2025-06-08] MEDS: VERAPAMIL 80 MG TABLET PO (11:56)
--- NOTE | 2025-06-08 13:32 | PC.NURSE ---
Discharge: Pt has been using translation service. Discharge instructions were given via glass sander belt [id number]. Pt has seen MD and received his d/c instructions. Pt and spouse were seen by [place] MONTANO. They had concerns about the hospital bill and insurance. Discussed medications, pt did decide to take the Verapamil 80mg, needs to take her regular home dose in 6 to 8 hours. And then resume as usual. Reviewed the discharge packet. She verbal understanding through the glass sander belt. At the end pt was asked specifically if she or her had questions. Those were answered. They know they pick her meds up at pharmacy on [address]. Pt felt ready to leave,
--- NOTE | 2025-06-09 09:22 | CM.DPNOTE ---
Late Entry- Discharge Note Met w/patient and sp before patient's discharge. Used Tajik real estate appraiser supervisor to assist with communication, spouse Abner spoke in Northern Irish off and on. Spouse provided the following information about himself and their temporary travel insurance : [employer], [employer] P# [id number]. Folder number: [phone] [id number] Spouse Abner Lynch's contact: [phone]. email : [email or web address]. Patient's Tajik Doctor : Awa Dove, [place] [facility] [address] [place] [address], [address] [place] [address] P# [phone] Attempted to email spouse this morning with the number for Patient Accounts P [phone]; email did not work for this PHYSICAL DESIGN ENGINEER and the phone number patient left dialed and then said it had been disconnected. ELIAS
== END 2025-06-08 13:10 | disposition home or self-care (01) | DRG 872 ==
LOC: ED 19:10 → AC 21:20
PROVIDERS: Student in an Organized Health Care Education/Training Program; Admitting Provider Internal Medicine; Emergency Provider Student in an Organized Health Care Education/Training Program; Referring Provider Student in an Organized Health Care Education/Training Program; Visit Provider Internal Medicine
DX: A41.9 Sepsis, unspecified organism (principal); N39.0 Urinary tract infection, site not specified; L03.115 Cellulitis of right lower limb; I10 Essential (primary) hypertension
CPT/HCPCS: 36415; 71046; 73701; 80048; 80053; 81001; 82550; 83605; 84145; 84484; 85025; 85610; 85651; 85730; 86140; 87040; 87086; 87637; 93005; 93010; 93971; 96361; 96365; 96366; 96367; 99284; 99291; J2543; Q9967